=== PATIENT | male | born 1985 | race American Indian/Alaskan Native ===

== ENCOUNTER 2021-08-30 18:10 | Emergency (ER) | payer OTHER ==
[2021-08-30 18:18] VITALS: BP 169/112
--- NOTE | 2021-09-03 10:53 | Electrocardiograph Report ---
[facility] Test Date: 2021-08-30 Test Time: 18:34:45 Pat Name: EDWARD TORRES Department: Room: Gender: M [employer] Clerk: ABRAHAM : 1985 Requested By: NANCIE SMART Order Number: [id number] Reading MD: Jersey Layton Measurements Intervals [place] Rate: 65 P: 30 IN: 169 QRS: 86 QRSD: 105 T: -15 QT: 374 QTc: 390 Interpretive Statements Sinus rhythm ST elev, probable normal early repol pattern No previous ECG available for comparison Electronically Signed On 09-03-2021 10:53:04 EDT by Jersey Layton
== END 2021-08-30 21:49 | disposition left against medical advice (07) ==
LOC: ED 18:10
DX: R07.9 Chest pain, unspecified (principal); Z53.21 Procedure and treatment not carried out due to patient leaving prior to being seen by health care provider
CPT/HCPCS: 93005